=== PATIENT | female | born 1965 | race Two or more races ===

== ENCOUNTER 2020-02-20 06:17 | Day surgery (SDC) | payer OTHER ==
[~2020-02-20 06:17] MED LIST: COZAAR50 MG PO; PROAIR HFA8.5 GM IH; SINGULAIR10 MG PO
== END 2020-02-20 17:03 | disposition home or self-care (01) ==
LOC: CIR.AMB 06:17
PROVIDERS: ATTEND Orthopaedic Surgery Hand Surgery
DX: M77.11 Lateral epicondylitis, right elbow (principal); Z20.828 Contact with and (suspected) exposure to other viral communicable diseases

== ENCOUNTER 2023-06-03 10:42 | Emergency (ER) | payer OTHER ==
[~2023-06-03] VITALS: Ht 165.1 cm; Wt 90.7 kg
[2023-06-03 12:14] LABS: HEMATOCRIT 38.6 % (36.0-45.00); HEMOGLOBIN 13.2 g/dL (12.0-15.00); MEAN CELL VOLUME 92.4 fL (80.00-100.00); MEAN CORPUSCULAR HEMOGLOBIN 31.6 pg (27.00-32.0); MEAN CORPUSCULAR HGB CONC 34.2 g/dl (32.0-36.0); PLATELET COUNT 299 K/uL (150-450); RED BLOOD COUNT 4.17 M/uL (4.00-6.00); RED CELL DISTRIBUTION WIDTH 13.5 % (11.5-14.5)
[2023-06-03 12:37] LABS: CALCIUM 8.9 mg/dL (8.5-10.1); CREATININE SERUM 0.52 mg/dL (0.55-1.02); GFR 122.43; POTASSIUM 3.8 mEq/L (3.5-5.1)
[2023-06-03 13:51] LABS: PH,URINE 6.5 (5.0-8.0); URINE APPEARANCE Clear; URINE BILIRRUBIN Negative (NEGATIVE); URINE BLOOD Negative; URINE COLOR Yellow; URINE GLUCOSE Negative (NEGATIVE); URINE LEUKOCYTE Negative; URINE NITRATE Negative; URINE PROTEIN Negative (NEGATIVE)
[2023-06-03 13:53] LABS: URINE BACTERIA 792.5 uL (0.0-1933); URINE EPITHELIAL CELLS 5.8 uL (0.0-38.8)
== END 2023-06-03 16:09 | disposition home or self-care (01) ==
LOC: ER
PROVIDERS: Emergency Medicine
DX: K52.89 Other specified noninfective gastroenteritis and colitis (principal); I10 Essential (primary) hypertension

== ENCOUNTER 2023-06-06 08:56 | Emergency (ER) | payer OTHER ==
[~2023-06-06] VITALS: Ht 162.6 cm; Wt 79.4 kg
[2023-06-06] MEDS ORDERED: LOSARTAN POTASS50 MG (09:34)
[2023-06-06] MEDS ORDERED: MOUNJARO2.5 MG/0.5 ×2 (09:35→09:36)
== END 2023-06-06 11:20 | disposition home or self-care (01) ==
LOC: ER 08:56
DX: R10.9 Unspecified abdominal pain (principal); I10 Essential (primary) hypertension